=== PATIENT | female | born 1985 | race Hispanic/Latino ===

== ENCOUNTER 2018-01-02 18:41 | Emergency (ER) | payer MEDICAID ==
[~2018-01-02] VITALS: Ht 154.9 cm; Wt 92.4 kg
[~2018-01-02 18:41] MED LIST: ATENOLOL25 MG PO; ATIVAN0.5 MG PO; CEPHALEXIN125 MG/5 M OR; CEPHALEXIN500 M1 OR; CEPHALEXIN500 M1 PO; CLINICAL NUTRIENTS P PO; CLONIDINE0.1 MG PO; DEP0PROVERA; FERROUS SULF325 M1 PO; FLEXERIL PO; LABETALOL100 MG PO; LABETALOL200 MG PO; LORTAB 5 OR; METROGEL VAG0.75 % VA; MOTRIN800 MG PO; NO HOME MEDS; NORVASC2.5 MG; OBTREX DHA PO; ONDANSETRON ODT8 MG PO; PRENATABS OR; RANITIDINE75 M1 PO; ROBITUSSIN AC10 ML OR; TENORMIN25 M1 PO; TORADOL PO; TUBERSOL5 MG/0.1 M ID; XANAX0.25 MG PO
[2018-01-02 20:10] LABS: INFLUENZA A NONE DETECTED (NONE DETECT); INFLUENZA B NONE DETECTED (NONE DETECT)
[2018-01-02] MEDS ORDERED: AMOXICILLIN500 MG PO (20:32)
[2018-01-02 20:43] VITALS: BP 162/80
== END 2018-01-02 20:52 | disposition home or self-care (01) | DRG 153 ==
LOC: ED 18:41
PROVIDERS: Emergency Medicine
DX: J02.9 Acute pharyngitis, unspecified (principal); G40.909 Epilepsy, unspecified, not intractable, without status epilepticus; I10 Essential (primary) hypertension; R50.9 Fever, unspecified; M79.1 Myalgia; R05 Cough; R07.81 Pleurodynia; J34.89 Other specified disorders of nose and nasal sinuses

== ENCOUNTER 2019-05-30 18:04 | Emergency (ER) | payer MEDICAID ==
[~2019-05-30] VITALS: Ht 154.9 cm; Wt 81.8 kg
[~2019-05-30 18:04] MED LIST changes: +AMOXICILLIN500 MG PO
[2019-05-30 18:42] LABS: HEMATOCRIT 38.3 % (37.0-47.0); HEMOGLOBIN 12.5 g/dl (12.0-16.0); IMMATURE GRANULOCYTES 0.7 % (0.0-5.0); MEAN CELL VOLUME 85.1 fL CALC (80.0-100.0); MEAN CORPUSCULAR HGB 27.8 pG CALC (26.0-32.0); MEAN CORPUSCULAR HGB CONC 32.6 g/L CALC (32.0-36.0); NEUT# 7.45 thou/uL (2.00-7.15); RED BLOOD COUNT 4.5 mill/uL (4.20-5.60); RED CELL DISTRI WIDTH 12.3 % (11.5-15.5)
[2019-05-30 18:55] LABS: ANION GAP 14 (6-22 (CALC)); BUN 15 mg/dL (7-17); BUN/CREATININE RATIO 15 (12-20 (CALC)); CARBON DIOXIDE 25 mmol/l (22-30); CHLORIDE 107 mmol/l (95-108); GFR > 60 ML/MIN (>=60 (CALC)); GFR FOR AFR.AMER. > 60 ML/MIN (>=60 (CALC)); POTASSIUM 3.9 mmol/l (3.5-5.1); SODIUM 142 mmol/l (137-146)
[2019-05-30 19:29] LABS: BARBITURATES NEGATIVE (NEGATIVE); COCAINE NEGATIVE (NEGATIVE); METHADONE NEGATIVE (NEGATIVE); TETRAHYDROCANNABIONOL NEGATIVE (NEGATIVE); TRICYLIC ANTIDEPRESSANTS NEGATIVE (NEGATIVE)
[2019-05-30 19:30] LABS: OXCYCODONE NEGATIVE (NEGATIVE)
[2019-05-30 19:46] LABS: ALBUMIN 4.1 g/dL (3.2-5.0); BILIRUBIN, TOTAL 0.3 mg/dL (0.0-1.4)
[2019-05-30] MEDS ORDERED: KEPPRA250 M1 PO (20:32)
[2019-05-30 21:32] VITALS: BP 177/74
== END 2019-05-30 21:31 | disposition home or self-care (01) ==
LOC: ED 18:04
PROVIDERS: Emergency Medicine; Family Medicine
DX: G40.909 Epilepsy, unspecified, not intractable, without status epilepticus (principal); B34.9 Viral infection, unspecified; I10 Essential (primary) hypertension
CPT/HCPCS: J1953

== ENCOUNTER 2020-01-28 | Emergency (ER) | payer OTHER ==
[~2020-01-28] MED LIST changes: +KEPPRA250 M1 PO
[2020-01-28] MEDS ORDERED: VISTARIL 50MG C50 M1 PO (10:00)
[2020-01-28] MEDS ORDERED: AMLODIPINE BESYL5 MG PO (10:01)
[2020-01-28] MEDS ORDERED: ATENOLOL50 MG PO (10:01)
[2020-01-28 10:33] LABS: HEMATOCRIT 39.1 % (37.0-47.0); HEMOGLOBIN 12.6 g/dl (12.0-16.0); IMMATURE GRANULOCYTES 1.2 % (0.0-5.0); MEAN CORPUSCULAR HGB 26.4 pG CALC (26.0-32.0); MEAN CORPUSCULAR HGB CONC 32.2 g/L CALC (32.0-36.0); NEUT# 3.95 thou/uL (2.00-7.15); RED BLOOD COUNT 4.77 mill/uL (4.20-5.60); RED CELL DISTRI WIDTH 12.4 % (11.5-15.5)
[2020-01-28 10:35] LABS: URINE BILIRUBIN - DIPSTICK NEGATIVE (NEGATIVE); URINE BLOOD DIPSTICK NEGATIVE (NEGATIVE); URINE COLOR YELLOW; URINE GLUCOSE - DIPSTICK NEGATIVE (NEGATIVE); URINE KETONE NEGATIVE (NEGATIVE); URINE LEUK ESTERASE TRACE (NEGATIVE); URINE NITRITE - DIPSTICK NEGATIVE (Negative); URINE PROTEIN - DIPSTICK TRACE mg/dL (NEG-TRACE); URINE SPECIFIC GRAVITY >=1.030; URINE UROBILINOGEN - DIPSTICK 0.2 E.U./dL (0.2)
[2020-01-28 10:41] LABS: BARBITURATES NEGATIVE (NEGATIVE); COCAINE NEGATIVE (NEGATIVE); METHADONE NEGATIVE (NEGATIVE); OXCYCODONE NEGATIVE (NEGATIVE); TETRAHYDROCANNABIONOL NEGATIVE (NEGATIVE); TRICYLIC ANTIDEPRESSANTS NEGATIVE (NEGATIVE)
[2020-01-28 11:02] LABS: ANION GAP 13 (6-22 (CALC)); BUN 12 mg/dL (7-17); BUN/CREATININE RATIO 18 (12-20 (CALC)); CARBON DIOXIDE 23 mmol/l (22-30); CHLORIDE 107 mmol/l (95-108); CREATININE 0.7 mg/dL (0.5-1.0); GFR > 60 ML/MIN (>=60 (CALC)); GFR FOR AFR.AMER. > 60 ML/MIN (>=60 (CALC)); POTASSIUM 3.9 mmol/l (3.5-5.1); SODIUM 139 mmol/l (137-146)
== END 2020-01-28 12:30 | disposition home or self-care (01) ==
PROVIDERS: Family Medicine
DX: R51 Headache (principal); I10 Essential (primary) hypertension; G40.909 Epilepsy, unspecified, not intractable, without status epilepticus; T42.6X6A Underdosing of other antiepileptic and sedative-hypnotic drugs, initial encounter; Z91.128 Patient's intentional underdosing of medication regimen for other reason
CPT/HCPCS: J1953; J2060

== ENCOUNTER 2020-07-17 22:18 | Emergency (ER) | payer OTHER ==
[~2020-07-17] VITALS: Ht 154.9 cm; Wt 90.5 kg
[~2020-07-17 22:18] MED LIST changes: +AMLODIPINE BESYL5 MG PO; +ATENOLOL50 MG PO; +VISTARIL 50MG C50 M1 PO
[2020-07-17] MEDS ORDERED: KEPPRA250 M1 PO (22:46)
[2020-07-17] MEDS ORDERED: LEXAPRO10 MG PO (22:47)
[2020-07-17] MEDS ORDERED: ZESTRIL10 M1 PO (22:47)
[2020-07-17] MEDS ORDERED: HYDROCHLOROT25 MG PO (23:57)
[2020-07-18 00:22] VITALS: BP 163/76
== END 2020-07-18 00:22 | disposition home or self-care (01) ==
LOC: ED 22:18
DX: R51 Headache (principal); I10 Essential (primary) hypertension; G40.909 Epilepsy, unspecified, not intractable, without status epilepticus

== ENCOUNTER 2020-07-18 02:01 | Emergency (ER) | payer OTHER ==
[~2020-07-18] VITALS: Ht 154.9 cm; Wt 90.5 kg
[~2020-07-18 02:01] MED LIST changes: +HYDROCHLOROT25 MG PO; +LEXAPRO10 MG PO; +ZESTRIL10 M1 PO
[2020-07-18 02:30] VITALS: BP 163/88
== END 2020-07-18 02:30 | disposition home or self-care (01) ==
LOC: ED 02:01
DX: G25.71 Drug induced akathisia (principal); T43.3X5A Adverse effect of phenothiazine antipsychotics and neuroleptics, initial encounter; I10 Essential (primary) hypertension; G40.909 Epilepsy, unspecified, not intractable, without status epilepticus

== ENCOUNTER 2020-11-04 11:27 | Emergency (ER) | payer OTHER ==
[~2020-11-04] VITALS: Ht 154.9 cm; Wt 92.0 kg
[2020-11-04 13:06] LABS: HEMOGLOBIN 12.8 g/dl (12.0-16.0); IMMATURE GRANULOCYTES 1.1 % (0.0-5.0); MEAN CELL VOLUME 83.2 fL CALC (80.0-100.0); MEAN CORPUSCULAR HGB 27.3 pG CALC (26.0-32.0); MEAN CORPUSCULAR HGB CONC 32.8 g/dL CAL (32.0-36.0); NEUT# 6.8 thou/uL (2.00-7.15); RED BLOOD COUNT 4.69 mill/uL (4.20-5.60); RED CELL DISTRI WIDTH 12.8 % (11.5-15.5)
[2020-11-04 13:25] LABS: ALKALINE PHOSPHATASE 101 u/l (38-126); ANION GAP 12 (6-22 (CALC)); BILIRUBIN, TOTAL 0.4 mg/dL (0.0-1.4); BUN 9 mg/dL (7-17); BUN/CREATININE RATIO 12 (12-20 (CALC)); CARBON DIOXIDE 27 mmol/l (22-30); CHLORIDE 107 mmol/l (95-108); CREATININE 0.8 mg/dL (0.5-1.0); GFR > 60 ML/MIN (>=60 (CALC)); GFR FOR AFR.AMER. > 60 ML/MIN (>=60 (CALC)); POTASSIUM 4.3 mmol/l (3.5-5.1); SGOT/AST 15 u/l (14-36); SODIUM 141 mmol/l (137-146)
[2020-11-04] MEDS ORDERED: ATENOLOL25 MG PO (13:44)
[2020-11-04 14:03] LABS: URINE BILIRUBIN - DIPSTICK NEGATIVE (NEGATIVE); URINE BLOOD DIPSTICK NEGATIVE (NEGATIVE); URINE COLOR YELLOW; URINE GLUCOSE - DIPSTICK NEGATIVE (NEGATIVE); URINE KETONE NEGATIVE (NEGATIVE); URINE LEUK ESTERASE TRACE (NEGATIVE); URINE NITRITE - DIPSTICK NEGATIVE (Negative); URINE PROTEIN - DIPSTICK NEGATIVE (NEG-TRACE); URINE UROBILINOGEN - DIPSTICK 0.2 E.U./dL (0.2)
[2020-11-04 17:24] VITALS: BP 135/81
== END 2020-11-04 17:31 | disposition home or self-care (01) ==
LOC: ED 11:27
PROVIDERS: Family Medicine
DX: R07.9 Chest pain, unspecified (principal); R53.83 Other fatigue; R00.1 Bradycardia, unspecified; I10 Essential (primary) hypertension; E66.9 Obesity, unspecified; F41.0 Panic disorder [episodic paroxysmal anxiety]; G40.909 Epilepsy, unspecified, not intractable, without status epilepticus; Z20.828 Contact with and (suspected) exposure to other viral communicable diseases

== ENCOUNTER 2022-03-03 07:08 | Emergency (ER) | payer OTHER ==
[2022-03-03] VITALS (10 sets, daily range): BP systolic 164–210; BP diastolic 85–112
[~2022-03-03] VITALS: Ht 154.9 cm; Wt 96.0 kg
[2022-03-03] MEDS ORDERED: NORVASC2.5 M1 PO (07:30)
[2022-03-03 07:49] LABS: HEMATOCRIT 39.5 % (37.0-47.0); IMMATURE GRANULOCYTES 0.2 % (0.0-5.0); MEAN CELL VOLUME 85.7 fL CALC (80.0-100.0); MEAN CORPUSCULAR HGB 28.2 pG CALC (26.0-32.0); MEAN CORPUSCULAR HGB CONC 32.9 g/dL CAL (32.0-36.0); NEUT# 9.01 thou/uL (2.00-7.15); RED BLOOD COUNT 4.61 mill/uL (4.20-5.60); RED CELL DISTRI WIDTH 12.4 % (11.5-15.5)
[2022-03-03 08:18] LABS: ALKALINE PHOSPHATASE 121 u/l (38-126); ANION GAP 11 (6-22 (CALC)); BILIRUBIN, TOTAL 0.3 mg/dL (0.0-1.4); BUN 16 mg/dL (7-17); BUN/CREATININE RATIO 22 (12-20 (CALC)); CARBON DIOXIDE 25 mmol/l (22-30); CHLORIDE 107 mmol/l (95-108); CREATININE 0.7 mg/dL (0.5-1.0); GFR > 60 ML/MIN (>=60 (CALC)); GFR FOR AFR.AMER. > 60 ML/MIN (>=60 (CALC)); POTASSIUM 3.6 mmol/l (3.5-5.1); SGOT/AST 18 u/l (14-36); SODIUM 139 mmol/l (137-146); TOTAL PROTEIN 7.2 g/dL (6.3-8.2)
[2022-03-03 08:48] LABS: TSH, 3RD GENERATION 1.79 uIU/mL (0.47 - 4.68)
[2022-03-03] MEDS ORDERED: ATENOLOL25 MG PO (08:53)
[2022-03-03] MEDS ORDERED: AMLODIPINE BESY10 MG PO (08:53)
[2022-03-03] MEDS ORDERED: KEPPRA500 M2 PO (08:53)
[2022-03-03] MEDS ORDERED: VISTARIL25 MG PO (08:53)
== END 2022-03-03 09:12 | disposition home or self-care (01) ==
LOC: ED 07:08
PROVIDERS: Family Medicine
DX: F41.0 Panic disorder [episodic paroxysmal anxiety] (principal); I10 Essential (primary) hypertension; G40.909 Epilepsy, unspecified, not intractable, without status epilepticus; Z63.9 Problem related to primary support group, unspecified

== ENCOUNTER 2022-06-03 03:00 | Emergency (ER) | payer OTHER ==
[~2022-06-03] VITALS: Ht 154.9 cm; Wt 95.0 kg
[2022-06-03] VITALS (8 sets, daily range): BP systolic 135–196; BP diastolic 68–116
[~2022-06-03 03:00] MED LIST changes: +AMLODIPINE BESY10 MG PO; +KEPPRA500 M2 PO; +NORVASC2.5 M1 PO; +VISTARIL25 MG PO
[2022-06-03] MEDS ORDERED: [UNRECOGNIZED DRUG - SUPPLY] (03:34)
[2022-06-03 03:39] LABS: HEMATOCRIT 38.8 % (37.0-47.0); HEMOGLOBIN 12.8 g/dl (12.0-16.0); IMMATURE GRANULOCYTES 0.2 % (0.0-5.0); MEAN CELL VOLUME 84.2 fL CALC (80.0-100.0); MEAN CORPUSCULAR HGB 27.8 pG CALC (26.0-32.0); NEUT# 6.71 thou/uL (2.00-7.15); RED BLOOD COUNT 4.61 mill/uL (4.20-5.60); RED CELL DISTRI WIDTH 12.5 % (11.5-15.5)
[2022-06-03 03:52] LABS: ALBUMIN 4.1 g/dL (3.2-5.0); ALKALINE PHOSPHATASE 98 u/l (38-126); ANION GAP 10 (6-22 (CALC)); BILIRUBIN, TOTAL 0.4 mg/dL (0.0-1.4); BUN 11 mg/dL (7-17); BUN/CREATININE RATIO 16 (12-20 (CALC)); CARBON DIOXIDE 29 mmol/l (22-30); CHLORIDE 107 mmol/l (95-108); CREATININE 0.7 mg/dL (0.5-1.0); GFR FOR AFR.AMER. > 60 ML/MIN (>=60 (CALC)); GFR OTHER RACES > 60 ML/MIN (>=60 (CALC)); POTASSIUM 3.4 mmol/l (3.5-5.1); SGOT/AST 15 u/l (14-36); SODIUM 142 mmol/l (137-146); TOTAL PROTEIN 7.5 g/dL (6.3-8.2)
[2022-06-03 03:54] LABS: URINE BILIRUBIN - DIPSTICK NEGATIVE (NEGATIVE); URINE BLOOD DIPSTICK NEGATIVE (NEGATIVE); URINE COLOR YELLOW; URINE GLUCOSE - DIPSTICK NEGATIVE (NEGATIVE); URINE KETONE NEGATIVE (NEGATIVE); URINE LEUK ESTERASE NEGATIVE (NEGATIVE); URINE NITRITE - DIPSTICK NEGATIVE (Negative); URINE PH 6.5 (4.5-8.0); URINE PROTEIN - DIPSTICK NEGATIVE (NEG-TRACE); URINE UROBILINOGEN - DIPSTICK 0.2 E.U./dL (0.2)
[2022-06-03 04:04] LABS: MYOGLOBIN 16 ng/mL (0 - 62)
[2022-06-03] MEDS ORDERED: VISTARIL25 MG PO (05:02)
== END 2022-06-03 05:26 | disposition home or self-care (01) ==
LOC: ED 03:00
PROVIDERS: Family Medicine
DX: R25.3 Fasciculation (principal); I10 Essential (primary) hypertension; F41.0 Panic disorder [episodic paroxysmal anxiety]; G40.909 Epilepsy, unspecified, not intractable, without status epilepticus
CPT/HCPCS: J2060

== ENCOUNTER 2022-09-07 08:24 | Emergency (ER) | payer OTHER ==
[~2022-09-07] VITALS: Ht 154.9 cm; Wt 94.5 kg
[2022-09-07] VITALS (12 sets, daily range): BP systolic 114–148; BP diastolic 49–81
[~2022-09-07 08:24] MED LIST changes: +[UNRECOGNIZED DRUG - SUPPLY]
[2022-09-07 08:49] LABS: HEMATOCRIT 38.2 % (37.0-47.0); HEMOGLOBIN 12.7 g/dl (12.0-16.0); IMMATURE GRANULOCYTES 0.5 % (0.0-5.0); MEAN CELL VOLUME 85.1 fL CALC (80.0-100.0); MEAN CORPUSCULAR HGB 28.3 pG CALC (26.0-32.0); MEAN CORPUSCULAR HGB CONC 33.2 g/dL CAL (32.0-36.0); NEUT# 4.06 thou/uL (2.00-7.15); RED BLOOD COUNT 4.49 mill/uL (4.20-5.60); RED CELL DISTRI WIDTH 12.5 % (11.5-15.5)
[2022-09-07 09:11] LABS: ALBUMIN 4.1 g/dL (3.2-5.0); ALKALINE PHOSPHATASE 84 u/l (38-126); ANION GAP 14 (6-22 (CALC)); BUN 17 mg/dL (7-17); BUN/CREATININE RATIO 22 (12-20 (CALC)); CARBON DIOXIDE 24 mmol/l (22-30); CHLORIDE 105 mmol/l (95-108); CREATININE 0.8 mg/dL (0.5-1.0); GFR FOR AFR.AMER. > 60 ML/MIN (>=60 (CALC)); GFR OTHER RACES > 60 ML/MIN (>=60 (CALC)); POTASSIUM 3.8 mmol/l (3.5-5.1); SODIUM 139 mmol/l (137-146); TOTAL PROTEIN 7.4 g/dL (6.3-8.2)
[2022-09-07 09:19] LABS: BILIRUBIN, TOTAL 0.6 mg/dL (0.0-1.4); SGOT/AST 38 u/l (14-36)
== END 2022-09-07 12:26 | disposition home or self-care (01) ==
LOC: ED 08:24
PROVIDERS: Family Medicine
DX: G40.909 Epilepsy, unspecified, not intractable, without status epilepticus (principal); I10 Essential (primary) hypertension; F41.0 Panic disorder [episodic paroxysmal anxiety]

== ENCOUNTER 2022-11-17 00:50 | Emergency (ER) | payer OTHER ==
[~2022-11-17] VITALS: Ht 154.9 cm; Wt 89.0 kg
[2022-11-17] MEDS ORDERED: HYDROCHLOROT25 MG PO (01:07)
[2022-11-17] MEDS ORDERED: HYDROXYZ HCL25 MG PO (01:08)
[2022-11-17] MEDS ORDERED: VITAMIN D-2 PO (01:10)
[2022-11-17 01:38] LABS: BASO% 0.2 % (0-3); EOS% 0.8 % (0-8); HEMATOCRIT 39.2 % (37.0-47.0); HEMOGLOBIN 13.3 g/dl (12.0-16.0); IMMATURE GRANULOCYTES 0.2 % (0.0-5.0); LYMPH% 31.9 % (15-41); MEAN CORPUSCULAR HGB 29.2 pG CALC (26.0-32.0); MEAN CORPUSCULAR HGB CONC 33.9 g/dL CAL (32.0-36.0); MONO% 7.3 % (2-13); NEUT# 6.49 thou/uL (2.00-7.15); NEUT% 59.6 % (42-76); RED BLOOD COUNT 4.56 mill/uL (4.20-5.60); RED CELL DISTRI WIDTH 12.3 % (11.5-15.5)
[2022-11-17 01:45] LABS: ALBUMIN 4.3 g/dL (3.2-5.0); ALKALINE PHOSPHATASE 73 u/l (38-126); CHLORIDE 105 mmol/l (95-108); POTASSIUM 3.4 mmol/l (3.5-5.1); SGOT/AST 21 u/l (14-36); SODIUM 142 mmol/l (137-146); TOTAL PROTEIN 7.7 g/dL (6.3-8.2)
[2022-11-17 01:49] LABS: BUN 12 mg/dL (7-17); BUN/CREATININE RATIO 14 (12-20 (CALC)); CREATININE 0.8 mg/dL (0.5-1.0); GFR FOR AFR.AMER. > 60 ML/MIN (>=60 (CALC)); GFR OTHER RACES > 60 ML/MIN (>=60 (CALC))
[2022-11-17 01:51] LABS: ANION GAP 7 (6-22 (CALC)); BILIRUBIN, TOTAL 0.2 mg/dL (0.0-1.4); CARBON DIOXIDE 33 mmol/l (22-30)
[2022-11-17 02:56] LABS: URINE BILIRUBIN - DIPSTICK NEGATIVE (NEGATIVE); URINE BLOOD DIPSTICK NEGATIVE (NEGATIVE); URINE COLOR YELLOW; URINE GLUCOSE - DIPSTICK NEGATIVE (NEGATIVE); URINE KETONE NEGATIVE (NEGATIVE); URINE LEUK ESTERASE NEGATIVE (NEGATIVE); URINE NITRITE - DIPSTICK NEGATIVE (Negative); URINE PROTEIN - DIPSTICK NEGATIVE (NEG-TRACE); URINE UROBILINOGEN - DIPSTICK 0.2 E.U./dL (0.2)
[2022-11-17 05:38] VITALS: BP 10/51
== END 2022-11-17 05:43 | disposition home or self-care (01) ==
LOC: ED 00:50
PROVIDERS: Emergency Medicine
DX: R07.89 Other chest pain (principal); I10 Essential (primary) hypertension; G40.909 Epilepsy, unspecified, not intractable, without status epilepticus; F41.0 Panic disorder [episodic paroxysmal anxiety]

== ENCOUNTER 2023-02-27 02:52 | Emergency (ER) | payer OTHER ==
[~2023-02-27] VITALS: Ht 154.9 cm; Wt 87.5 kg
[2023-02-27] VITALS (11 sets, daily range): BP systolic 151–180; BP diastolic 80–104
[~2023-02-27 02:52] MED LIST changes: +HYDROXYZ HCL25 MG PO; +VITAMIN D-2 PO
[2023-02-27] MEDS ORDERED: NORVASC10 M1 PO (03:08)
[2023-02-27 03:41] LABS: BASO% 0.5 % (0-3); EOS% 0.9 % (0-8); HEMATOCRIT 37.4 % (37.0-47.0); HEMOGLOBIN 12.1 g/dl (12.0-16.0); IMMATURE GRANULOCYTES 0.3 % (0.0-5.0); LYMPH% 35.7 % (15-41); MEAN CORPUSCULAR HGB 27.2 pG CALC (26.0-32.0); MEAN CORPUSCULAR HGB CONC 32.4 g/dL CAL (32.0-36.0); MONO% 9.3 % (2-13); NEUT# 4.2 thou/uL (2.00-7.15); NEUT% 53.3 % (42-76); RED BLOOD COUNT 4.45 mill/uL (4.20-5.60); RED CELL DISTRI WIDTH 12.2 % (11.5-15.5)
[2023-02-27 03:58] LABS: ALBUMIN 4.1 g/dL (3.2-5.0); ALKALINE PHOSPHATASE 90 u/l (38-126); BUN 18 mg/dL (7-17); BUN/CREATININE RATIO 22 (12-20 (CALC)); CHLORIDE 107 mmol/l (95-108); CREATININE 0.8 mg/dL (0.5-1.0); GFR FOR AFR.AMER. > 60 ML/MIN (>=60 (CALC)); GFR OTHER RACES > 60 ML/MIN (>=60 (CALC)); POTASSIUM 3.4 mmol/l (3.5-5.1); SGOT/AST 19 u/l (14-36); SODIUM 139 mmol/l (137-146); TOTAL PROTEIN 7.2 g/dL (6.3-8.2)
[2023-02-27 04:02] LABS: ANION GAP 9 (6-22 (CALC)); CARBON DIOXIDE 26 mmol/l (22-30)
[2023-02-27 04:52] LABS: URINE BILIRUBIN - DIPSTICK NEGATIVE (NEGATIVE); URINE BLOOD DIPSTICK LARGE (NEGATIVE); URINE COLOR YELLOW; URINE GLUCOSE - DIPSTICK NEGATIVE (NEGATIVE); URINE KETONE NEGATIVE (NEGATIVE); URINE LEUK ESTERASE TRACE (NEGATIVE); URINE PROTEIN - DIPSTICK NEGATIVE (NEG-TRACE); URINE SPECIFIC GRAVITY <=1.005; URINE UROBILINOGEN - DIPSTICK 0.2 E.U./dL (0.2)
[2023-02-27 04:53] LABS: URINE NITRITE - DIPSTICK NEGATIVE (Negative)
[2023-02-27 05:00] LABS: URINE SQUAMOUS EPITHELIAL CELL FEW EPI/hpf (0-FEW)
== END 2023-02-27 05:28 | disposition home or self-care (01) ==
LOC: ED 02:52
PROVIDERS: Family Medicine
DX: R51.9 Headache, unspecified (principal); I10 Essential (primary) hypertension; G40.909 Epilepsy, unspecified, not intractable, without status epilepticus; F41.0 Panic disorder [episodic paroxysmal anxiety]

== ENCOUNTER 2023-07-22 01:04 | Emergency (ER) | payer SELFPAY ==
[~2023-07-22] VITALS: Ht 154.9 cm; Wt 89.0 kg
[~2023-07-22 01:04] MED LIST changes: +NORVASC10 M1 PO
[2023-07-22 02:39] LABS: BASO% 0.3 % (0-3); EOS% 0.7 % (0-8); HEMATOCRIT 38.1 % (37.0-47.0); HEMOGLOBIN 12.4 g/dl (12.0-16.0); IMMATURE GRANULOCYTES 0.1 % (0.0-5.0); LYMPH% 29.2 % (15-41); MEAN CELL VOLUME 83.9 fL CALC (80.0-100.0); MEAN CORPUSCULAR HGB 27.3 pG CALC (26.0-32.0); MEAN CORPUSCULAR HGB CONC 32.5 g/dL CAL (32.0-36.0); MONO% 7.4 % (2-13); NEUT# 5.4 thou/uL (2.00-7.15); NEUT% 62.3 % (42-76); RED BLOOD COUNT 4.54 mill/uL (4.20-5.60); RED CELL DISTRI WIDTH 12.1 % (11.5-15.5)
[2023-07-22 02:53] LABS: ALBUMIN 4.1 g/dL (3.2-5.0); ALKALINE PHOSPHATASE 95 u/l (38-126); ANION GAP 10 (6-22 (CALC)); BUN 16 mg/dL (7-17); BUN/CREATININE RATIO 20 (12-20 (CALC)); CARBON DIOXIDE 28 mmol/l (22-30); CHLORIDE 105 mmol/l (95-108); CPK 64 u/l (30-135); CREATININE 0.8 mg/dL (0.5-1.0); GFR FOR AFR.AMER. > 60 ML/MIN (>=60 (CALC)); GFR OTHER RACES > 60 ML/MIN (>=60 (CALC)); LIPASE 100 u/l (23-300); POTASSIUM 3.7 mmol/l (3.5-5.1); SGOT/AST 23 u/l (14-36); SODIUM 140 mmol/l (137-146); TOTAL PROTEIN 7.4 g/dL (6.3-8.2)
[2023-07-22 03:01] LABS: BILIRUBIN, TOTAL 0.5 mg/dL (0.02-1.3)
[2023-07-22 03:24] LABS: TSH, 3RD GENERATION 1.08 uIU/mL (0.47 - 4.68)
[2023-07-22 04:45] VITALS: BP 128/78
[2023-07-22] MEDS ORDERED: BUSPAR5 MG PO (05:51)
[2023-07-22] MEDS ORDERED: HYDRALAZINE HYD25 MG (05:51)
== END 2023-07-22 04:45 | disposition home or self-care (01) | DRG 313 ==
LOC: ED 01:04
PROVIDERS: Internal Medicine
DX: R07.9 Chest pain, unspecified (principal); I10 Essential (primary) hypertension; G40.909 Epilepsy, unspecified, not intractable, without status epilepticus; F41.9 Anxiety disorder, unspecified; Z82.49 Family history of ischemic heart disease and other diseases of the circulatory system